=== PATIENT | male | born 1995 | race Caucasian/White ===

== ENCOUNTER 2017-04-11 12:04 | Emergency (ER) | payer OTHER ==
[~2017-04-11] VITALS: Ht 162.6 cm; Wt 118.0 kg
[~2017-04-11 12:04] MED LIST: AMOX/K CLAV875 M1 PO; AMOXICILLIN875 MG OR; AMOXIL400 MG/52 PO; MUPIROCIN2 % EX; NASONEX50 MCG/AC; NASONEX50 MCG/ACT; NO MEDS; OMEPRAZOLE20 MG PO; PREVACID30 M2 PO; PREVPAC PO; SMZ/TMP DS1 TAB PO; ULTRAM50 MG PO; ZOFRAN ODT4 MG PO
[2017-04-11 12:43] LABS: HEMATOCRIT 45.1 % (39.0-50.0); HEMOGLOBIN 14.6 g/dl (14.0-18.0); IMMATURE GRANULOCYTES 0.2 % (0.0-1.0); MEAN CELL VOLUME 85.7 fL CALC (80.0-100.0); MEAN CORPUSCULAR HGB 27.8 pG CALC (26.0-32.0); MEAN CORPUSCULAR HGB CONC 32.4 g/L CALC (32.0-36.0); NEUT# 7.37 thou/uL (1.82-7.42); RED BLOOD COUNT 5.26 mill/uL (4.70-6.10); RED CELL DISTRI WIDTH 13.7 % (11.5-15.5)
[2017-04-11 12:59] LABS: ALBUMIN 4.6 g/dL (3.2-5.0); ALKALINE PHOSPHATASE 73 u/l (38-126); ANION GAP 18 (6-22 (CALC)); BUN 17 mg/dL (9-20); BUN/CREATININE RATIO 19 (12-20 (CALC)); CALCIUM 9.5 mg/dL (8.4-10.2); CARBON DIOXIDE 22 mmol/l (22-30); CHLORIDE 108 mmol/l (95-108); CREATININE 0.9 mg/dL (0.7-1.3); GFR > 60 ML/MIN (>=60 (CALC)); GFR FOR AFR.AMER. > 60 ML/MIN (>=60 (CALC)); GLUCOSE 105 mg/dL (75-110); POTASSIUM 4.4 mmol/l (3.5-5.1); SGOT/AST 40 u/l (17-59); SGPT/ALT 61 u/l (21-72); SODIUM 143 mmol/l (137-146); TOTAL PROTEIN 7.6 g/dL (6.3-8.2)
[2017-04-11] MEDS ORDERED: PERCOCET 5/325M1 TAB PO ×2 (13:23→15:36)
[2017-04-11] MEDS ORDERED: KEFLEX500 MG PO ×2 (13:23→15:36)
[2017-04-11] MEDS ORDERED: MOTRIN800 MG PO (15:36)
[2017-04-11 16:55] VITALS: BP 117/56
== END 2017-04-11 16:55 | disposition left against medical advice (07) | DRG 914 ==
LOC: ED 12:04
PROVIDERS: Emergency Medicine
DX: S71.142A Puncture wound with foreign body, left thigh, initial encounter (principal); Z91.19 Patient's noncompliance with other medical treatment and regimen; W34.00XA Accidental discharge from unspecified firearms or gun, initial encounter; Y93.89 Activity, other specified; Y92.59 Other trade areas as the place of occurrence of the external cause

== ENCOUNTER 2017-09-23 14:45 | Emergency (ER) | payer OTHER ==
[~2017-09-23] VITALS: Ht 162.6 cm; Wt 120.0 kg
[~2017-09-23 14:45] MED LIST changes: +KEFLEX500 MG PO; +MOTRIN800 MG PO; +PERCOCET 5/325M1 TAB PO
[2017-09-23 16:50] VITALS: BP 149/81
== END 2017-09-23 16:50 | disposition home or self-care (01) | DRG 556 ==
LOC: ED 14:45
DX: M79.652 Pain in left thigh (principal); F17.210 Nicotine dependence, cigarettes, uncomplicated; M79.5 Residual foreign body in soft tissue; W34.00XS Accidental discharge from unspecified firearms or gun, sequela

== ENCOUNTER 2019-09-14 | Emergency (ER) | payer OTHER ==
[2019-09-14 12:21] LABS: URINE BILIRUBIN - DIPSTICK NEGATIVE (NEGATIVE); URINE BLOOD DIPSTICK NEGATIVE (NEGATIVE); URINE COLOR YELLOW; URINE GLUCOSE - DIPSTICK NEGATIVE (NEGATIVE); URINE KETONE NEGATIVE (NEGATIVE); URINE LEUK ESTERASE NEGATIVE (NEGATIVE); URINE NITRITE - DIPSTICK NEGATIVE (Negative); URINE PROTEIN - DIPSTICK NEGATIVE (NEG-TRACE)
[2019-09-14 12:27] LABS: HEMATOCRIT 45.4 % (39.0-50.0); HEMOGLOBIN 14.5 g/dl (14.0-18.0); IMMATURE GRANULOCYTES 0.3 % (0.0-5.0); MEAN CELL VOLUME 87.5 fL CALC (80.0-100.0); MEAN CORPUSCULAR HGB 27.9 pG CALC (26.0-32.0); MEAN CORPUSCULAR HGB CONC 31.9 g/L CALC (32.0-36.0); NEUT# 8.27 thou/uL (1.82-7.42); RED BLOOD COUNT 5.19 mill/uL (4.70-6.10); RED CELL DISTRI WIDTH 13.8 % (11.5-15.5)
[2019-09-14 12:47] LABS: ALBUMIN 4.3 g/dL (3.2-5.0); ALKALINE PHOSPHATASE 66 u/l (38-126); AMYLASE 51 u/l (30-110); ANION GAP 13 (6-22 (CALC)); BILIRUBIN, TOTAL 0.7 mg/dL (0.0-1.4); BUN 14 mg/dL (9-20); BUN/CREATININE RATIO 17 (12-20 (CALC)); CARBON DIOXIDE 25 mmol/l (22-30); CHLORIDE 105 mmol/l (95-108); CREATININE 0.8 mg/dL (0.7-1.3); GFR > 60 ML/MIN (>=60 (CALC)); GFR FOR AFR.AMER. > 60 ML/MIN (>=60 (CALC)); LIPASE 75 u/l (23-300); POTASSIUM 4.4 mmol/l (3.5-5.1); SGOT/AST 33 u/l (17-59); SODIUM 139 mmol/l (137-146); TOTAL PROTEIN 7.3 g/dL (6.3-8.2)
[2019-09-14] MEDS ORDERED: METRONIDAZOL250 MG PO (13:28)
[2019-09-14] MEDS ORDERED: ONDANSETRON4 MG PO ×2 (13:28)
[2019-09-14] MEDS ORDERED: CIPROFLOXACN500 MG PO (13:28)
== END 2019-09-14 14:26 | disposition home or self-care (01) ==
DX: K50.10 Crohn's disease of large intestine without complications (principal)

== ENCOUNTER 2020-03-03 00:22 | Emergency (ER) | payer OTHER ==
[~2020-03-03] VITALS: Ht 162.6 cm; Wt 119.1 kg
[~2020-03-03 00:22] MED LIST changes: +CIPROFLOXACN500 MG PO; +METRONIDAZOL250 MG PO; +ONDANSETRON4 MG PO
[2020-03-03 00:28] VITALS: BP 129/66
[2020-03-03] MEDS ORDERED: STERAPRED DS10 MG PO (00:46)
== END 2020-03-03 01:09 | disposition home or self-care (01) ==
LOC: ED 00:22
DX: L25.9 Unspecified contact dermatitis, unspecified cause (principal)

== ENCOUNTER 2024-02-29 08:18 | Emergency (ER) | payer OTHER ==
[~2024-02-29] VITALS: Ht 162.6 cm; Wt 123.0 kg
[~2024-02-29 08:18] MED LIST changes: +STERAPRED DS10 MG PO
[2024-02-29 08:27] VITALS: BP 138/92
[2024-02-29 08:30] VITALS: BP 143/96
[2024-02-29] MEDS ORDERED: MOTRIN400 MG/TAB PO (08:37)
[2024-02-29] MEDS ORDERED: CLEOCIN300 MG PO (08:37)
[2024-02-29 08:44] VITALS: BP 134/94
[2024-02-29 08:50] VITALS: BP 143/96
== END 2024-02-29 08:50 | disposition home or self-care (01) ==
LOC: ED 08:18
DX: K08.89 Other specified disorders of teeth and supporting structures (principal)